=== PATIENT | male | born 1995 | race Caucasian/White ===

== ENCOUNTER 2020-03-09 22:28 | Emergency (ER) | payer OTHER, SELFPAY ==
--- NOTE | 2020-03-09 23:08 | RAD ---
EXAM: 3 views of the left shoulder HISTORY: Shoulder pain after fall while skateboarding COMPARISON: None FINDINGS: There is a fracture the midportion of the left clavicle. No other fractures or dislocations are seen. No degenerative changes are present. No soft tissue swelling is seen. The visualized thorax is unremarkable. IMPRESSION: Left mid clavicular fracture
--- NOTE | 2020-03-09 23:10 | RAD ---
EXAM: 2 views of the left clavicle HISTORY: Clavicle pain after fall while skateboarding COMPARISON: None FINDINGS: There is a mildly comminuted fracture of the midportion of the clavicle. No AC separation i s seen. No soft tissue swelling is seen. The visualized upper thorax is unremarkable. IMPRESSION: Mid left clavicle fracture
[2020-03-09] MEDS ORDERED: Morphine 4 MG/ML VIAL ONE (23:13)
== END 2020-03-09 23:40 | disposition home or self-care (01) ==
LOC: ERS 22:28
DX: S42.022A Displaced fracture of shaft of left clavicle, initial encounter for closed fracture (principal); J45.909 Unspecified asthma, uncomplicated; F90.9 Attention-deficit hyperactivity disorder, unspecified type; F17.210 Nicotine dependence, cigarettes, uncomplicated; V00.131A Fall from skateboard, initial encounter; Y93.51 Activity, roller skating (inline) and skateboarding
CPT/HCPCS: 96372; J2270